=== PATIENT | female | born 2005 | race Caucasian/White ===

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

== ENCOUNTER 2024-01-05 07:17 | Emergency (ER) | payer SELFPAY ==
[2024-01-05 07:45] LABS: BASOPHILS ABSOLUTE AUTO 0.04 10^3/uL (0.00-0.10); BASOPHILS PERCENT AUTO 0.5 % (0.0-1.0); EOSINOPHILS ABSOLUTE AUTO 0.07 10^3/uL (0.10-0.30); EOSINOPHILS PERCENT AUTO 0.8 % (1.0-3.0); HEMATOCRIT 35.4 % (37.0-47.0); HEMOGLOBIN 12.4 g/dL (12.0-16.0); IMMATURE GRAN ABSOLUTE AUTO 0.02 10^3/uL (0.00-0.50); IMMATURE GRAN PERCENT AUTO 0.2 % (0.0-5.0); LYMPHOCYTES ABSOLUTE AUTO 1.82 10^3/uL (1.00-4.00); LYMPHOCYTES PERCENT AUTO 20.8 % (20.0-40.0); MEAN CORPUSCULAR VOLUME 85.5 fL (82.0-92.0); MEAN PLATELET VOLUME 9.2 fL (7.4-10.4); MONOCYTES PERCENT AUTO 9.2 % (2.0-8.0); NEUTROPHILS ABSOLUTE AUTO 5.99 10^3/uL (2.50-7.00); NEUTROPHILS PERCENT AUTO 68.5 % (50.0-70.0); PLATELET COUNT,PLT 246 10^3/uL (150-400); RED BLOOD CELL COUNT 4.14 10^6/uL (3.80-5.50); RED CELL DISTRIBUTION WIDTH 11.8 % (11.5-14.5); WHITE BLOOD CELL COUNT,WBC 8.74 10^3/uL (5.00-10.00)
[2024-01-05] MEDS: Sodium Chloride 0.9% 1,000 ML IV ONE (07:50)
[2024-01-05] MEDS: Ondansetron 4 MG/2 ML SDV IVPUSH ONE (07:52)
[2024-01-05 07:54] LABS: ALBUMIN 3.13 g/dL (3.40-5.00); ANION GAP 13.9 mmol/L (5-15); BILIRUBIN TOTAL 0.4 mg/dL (0.2-1.0); CALCIUM 8.3 mg/dL (8.7-10.3); CARBON DIOXIDE,CO2 25.6 mmol/L (21.0-32.0); CREATININE 0.68 mg/dL (0.51-1.17); EST CRCL DRUG DOSING (CG) 124.57 mL/min; POTASSIUM,K 3.5 mmol/L (3.5-5.1); PROTEIN TOTAL,TP 6.9 g/dL (6.4-8.2)
[2024-01-05 08:13] LABS: APPEARANCE,URINE SLIGHTLY CLOUDY (CLEAR); BILIRUBIN,URINE NEGATIVE (NEGATIVE); COLOR,URINE YELLOW (YELLOW); GLUCOSE,URINE NEGATIVE (NEGATIVE); KETONES,URINE NEGATIVE (NEGATIVE); LEUKOCYTE ESTERASE,URINE NEGATIVE (NEGATIVE); NITRITE,URINE NEGATIVE (NEGATIVE); OCCULT BLOOD,URINE NEGATIVE (NEGATIVE); PH,URINE 8.5 (5.0-9.0); PROTEIN,URINE 30 mg/dL (NEGATIVE); UROBILINOGEN,URINE 0.2 E.U./dL (0.2-1.0)
[2024-01-05 08:14] LABS: RBC,URINE 0-5 /HPF (0-5); WBC,URINE 0-5 /HPF (0-5)
[2024-01-05 08:15] LABS: BACTERIA,URINE RARE /HPF (NONE TO FEW); EPITHELIAL CELLS,URINE MODERATE /LPF; MUCUS,URINE MANY /LPF (NEGATIVE)
[2024-01-05] MEDS: Iopamidol 755 Mg/ML 100 ML Bottle IV ONE (08:27)
[2024-01-05] MEDS: Sodium Chloride 0.9% 50 ML IV SCH (08:27)
[2024-01-05] MEDS: HYDROmorphone 1 MG/ML Syringe IVPUSH ONE ×2 (08:31→09:55)
[2024-01-05] MEDS: Ketorolac 30 MG/ML SDV IVPUSH ONE (11:15)
== END 2024-01-05 10:05 ==
LOC: KA.ED 07:17
DX: K35.80 Unspecified acute appendicitis (principal); F17.210 Nicotine dependence, cigarettes, uncomplicated; Z79.899 Other long term (current) drug therapy
CPT/HCPCS: 36415; 74177; 80053; 81001; 81025; 83690; 85025; 86140; 96361; 96374; 96375; 96376; 99285-25; J1170; J2405; J3490; J7030; Q9967

== ENCOUNTER 2024-07-29 13:45 | Emergency (ER) | payer OTHER ==
[2024-07-29] MEDS ORDERED: Sodium Chloride 0.9% 10 ML Syringe FLUSH PRN (14:18)
[2024-07-29 14:35] LABS: BASOPHILS ABSOLUTE AUTO 0.04 10^3/uL (0.00-0.10); BASOPHILS PERCENT AUTO 0.4 % (0.0-1.0); EOSINOPHILS ABSOLUTE AUTO 0.13 10^3/uL (0.10-0.30); EOSINOPHILS PERCENT AUTO 1.3 % (1.0-3.0); HEMATOCRIT 37.9 % (37.0-47.0); HEMOGLOBIN 13.2 g/dL (12.0-16.0); IMMATURE GRAN ABSOLUTE AUTO 0.02 10^3/uL (0.00-0.50); IMMATURE GRAN PERCENT AUTO 0.2 % (0.0-5.0); LYMPHOCYTES ABSOLUTE AUTO 2.11 10^3/uL (1.00-4.00); LYMPHOCYTES PERCENT AUTO 20.7 % (20.0-40.0); MEAN CORPUSCULAR HEMOGLOBIN 29.8 pg (27.0-31.0); MEAN CORPUSCULAR HGB CONC 34.8 g/dL (32.0-36.0); MEAN CORPUSCULAR VOLUME 85.6 fL (82.0-92.0); MEAN PLATELET VOLUME 8.8 fL (7.4-10.4); MONOCYTES ABSOLUTE AUTO 0.78 10^3/uL (0.10-0.80); MONOCYTES PERCENT AUTO 7.6 % (2.0-8.0); NEUTROPHILS ABSOLUTE AUTO 7.13 10^3/uL (2.50-7.00); NEUTROPHILS PERCENT AUTO 69.8 % (50.0-70.0); PLATELET COUNT,PLT 304 10^3/uL (150-400); RED BLOOD CELL COUNT 4.43 10^6/uL (3.80-5.50); RED CELL DISTRIBUTION WIDTH 12.6 % (11.5-14.5); WHITE BLOOD CELL COUNT,WBC 10.21 10^3/uL (5.00-10.00)
[2024-07-29] MEDS: Sodium Chloride 0.9% 1,000 ML IV ONE (14:36)
[2024-07-29 14:46] LABS: APPEARANCE,URINE CLEAR (CLEAR); BILIRUBIN,URINE NEGATIVE (NEGATIVE); GLUCOSE,URINE NEGATIVE (NEGATIVE); KETONES,URINE NEGATIVE (NEGATIVE); LEUKOCYTE ESTERASE,URINE NEGATIVE (NEGATIVE); NITRITE,URINE NEGATIVE (NEGATIVE); PH,URINE 6.5 (5.0-9.0); PROTEIN,URINE NEGATIVE (NEGATIVE); UROBILINOGEN,URINE 0.2 E.U./dL (0.2-1.0)
[2024-07-29] MEDS: Ondansetron 4 MG/2 ML SDV IVPUSH ONE (14:48)
[2024-07-29 15:10] LABS: COLOR,URINE STRAW (YELLOW); OCCULT BLOOD,URINE SMALL (NEGATIVE); RBC,URINE 0-5 /HPF (0-5); WBC,URINE 0-5 /HPF (0-5)
[2024-07-29 15:11] LABS: BACTERIA,URINE FEW /HPF (NONE TO FEW); EPITHELIAL CELLS,URINE FEW /LPF
[2024-07-29 15:13] LABS: ALBUMIN 3.81 g/dL (3.40-5.00); BILIRUBIN TOTAL 0.2 mg/dL (0.2-1.0); CALCIUM 8.6 mg/dL (8.7-10.3); CARBON DIOXIDE,CO2 25.4 mmol/L (21.0-32.0); CREATININE 0.68 mg/dL (0.51-1.17); EST CRCL DRUG DOSING (CG) 119.74 mL/min; POTASSIUM,K 3.4 mmol/L (3.5-5.1); PROTEIN TOTAL,TP 7.4 g/dL (6.4-8.2)
== END 2024-07-29 15:50 | disposition home or self-care (01) ==
LOC: KA.ED 13:45
DX: O03.9 Complete or unspecified spontaneous abortion without complication (principal); E87.6 Hypokalemia; Z3A.01 Less than 8 weeks gestation of pregnancy
CPT/HCPCS: 36415; 76857; 80053; 81001; 83605; 84702; 85025; 87040; 96361; 96374; 99284-25; J2405; J7030

== ENCOUNTER 2024-11-12 10:35 | Emergency (ER) | payer OTHER, MEDICAID ==
[2024-11-12] MEDS ORDERED: Sodium Chloride 0.9% 10 ML Syringe FLUSH PRN (10:42)
[2024-11-12 10:50] LABS: BASOPHILS ABSOLUTE AUTO 0.04 10^3/uL (0.00-0.10); BASOPHILS PERCENT AUTO 0.4 % (0.0-1.0); EOSINOPHILS ABSOLUTE AUTO 0.01 10^3/uL (0.10-0.30); EOSINOPHILS PERCENT AUTO 0.1 % (1.0-3.0); HEMATOCRIT 37.3 % (37.0-47.0); HEMOGLOBIN 13.1 g/dL (12.0-16.0); IMMATURE GRAN ABSOLUTE AUTO 0.02 10^3/uL (0.00-0.04); IMMATURE GRAN PERCENT AUTO 0.2 % (0.0-0.4); LYMPHOCYTES ABSOLUTE AUTO 1.66 10^3/uL (1.00-4.00); LYMPHOCYTES PERCENT AUTO 17.3 % (20.0-40.0); MEAN CORPUSCULAR HEMOGLOBIN 29.5 pg (27.0-31.0); MEAN CORPUSCULAR HGB CONC 35.1 g/dL (32.0-36.0); MONOCYTES ABSOLUTE AUTO 0.57 10^3/uL (0.10-0.80); MONOCYTES PERCENT AUTO 5.9 % (2.0-8.0); NEUTROPHILS ABSOLUTE AUTO 7.32 10^3/uL (2.50-7.00); NEUTROPHILS PERCENT AUTO 76.1 % (50.0-70.0); PLATELET COUNT,PLT 360 10^3/uL (150-400); RED BLOOD CELL COUNT 4.44 10^6/uL (3.80-5.50); RED CELL DISTRIBUTION WIDTH 11.8 % (11.5-14.5); WHITE BLOOD CELL COUNT,WBC 9.62 10^3/uL (5.00-10.00)
[2024-11-12] MEDS: LORazepam 2 MG/ML SDV IVPUSH ONE (10:59)
[2024-11-12 11:00] LABS: APPEARANCE,URINE CLEAR (CLEAR); BILIRUBIN,URINE NEGATIVE (NEGATIVE); COLOR,URINE YELLOW (YELLOW); GLUCOSE,URINE NEGATIVE (NEGATIVE); KETONES,URINE NEGATIVE (NEGATIVE); LEUKOCYTE ESTERASE,URINE NEGATIVE (NEGATIVE); NITRITE,URINE NEGATIVE (NEGATIVE); OCCULT BLOOD,URINE NEGATIVE (NEGATIVE); PROTEIN,URINE NEGATIVE (NEGATIVE); UROBILINOGEN,URINE 0.2 E.U./dL (0.2-1.0)
[2024-11-12 11:01] LABS: ALANINE AMINOTRANSFERASE,ALT 18 U/L (14-63); ALBUMIN 3.85 g/dL (3.40-5.00); ALKALINE PHOSPHATASE 50 U/L (46-116); ANION GAP 19.9 mmol/L (5-15); ASPARTATE AMNIOTRANSFERASE,AST 19 U/L (15-37); BILIRUBIN TOTAL 0.2 mg/dL (0.2-1.0); BLOOD UREA NITROGEN,BUN 11 mg/dL (7-18); CALCIUM 9.1 mg/dL (8.7-10.3); CARBON DIOXIDE,CO2 21.2 mmol/L (21.0-32.0); CHLORIDE,CL 100 mmol/L (98-107); CREATININE 0.66 mg/dL (0.51-1.17); EST CRCL DRUG DOSING (CG) 129.75 mL/min; GLUCOSE RANDOM 119 mg/dL (70-140); POTASSIUM,K 3.1 mmol/L (3.5-5.1); PROTEIN TOTAL,TP 7.6 g/dL (6.4-8.2); SODIUM,NA 138 mmol/L (136-145)
[2024-11-12 11:02] LABS: C-REACTIVE PROTEIN < 0.50 mg/dL (0.00-0.50); ESTIMATED GFR 129 mL/min (>=60)
[2024-11-12 11:03] LABS: HCG QUALITATIVE,SERUM NEGATIVE (NEGATIVE)
[2024-11-12] MEDS: Sodium Chloride 0.9% 1,000 ML IV ONE (11:07)
[2024-11-12 11:10] LABS: AMPHETAMINES SCREEN, URINE NEGATIVE (NEGATIVE); BARBITURATE SCREEN,URINE NEGATIVE (NEGATIVE); BENZODIAZEPINES SCREEN,URINE NEGATIVE (NEGATIVE); COCAINE METABOLITES,URINE NEGATIVE (NEGATIVE); METHADONE SCREEN, URINE NEGATIVE (NEGATIVE); METHAMPHETAMINES SCREEN, URINE NEGATIVE (NEGATIVE); OXYCODONE SCREEN,URINE NEGATIVE (NEGATIVE); PCP SCREEN,URINE NEGATIVE (NEGATIVE); TCA SCREEN,URINE NEGATIVE (NEGATIVE); THC SCREEN,URINE 50 NG/ML NEGATIVE (NEGATIVE)
== END 2024-11-12 12:00 | disposition home or self-care (01) ==
LOC: KA.ED 10:35
DX: F41.0 Panic disorder [episodic paroxysmal anxiety] (principal); R06.4 Hyperventilation; R29.0 Tetany; Z88.8 Allergy status to other drugs, medicaments and biological substances; Z90.49 Acquired absence of other specified parts of digestive tract
CPT/HCPCS: 71045; 80053; 80305-QW; 81003; 84703; 85025; 86140; 93010; 96361; 96374; 99284; 99284-25; J2060; J7030

== ENCOUNTER 2024-11-15 10:06 | Emergency (ER) | payer OTHER, MEDICAID | END 2024-11-15 11:35 | disposition home or self-care (01) | LOC: KA.ED 10:06 | DX: F41.9 Anxiety disorder, unspecified (principal); L30.9 Dermatitis, unspecified; Z88.8 Allergy status to other drugs, medicaments and biological substances; Z79.899 Other long term (current) drug therapy; Z86.16 Personal history of COVID-19 | CPT/HCPCS: 36416; 86308; 99284 ==

== ENCOUNTER 2024-11-25 22:12 | Emergency (ER) | payer OTHER, MEDICAID ==
[2024-11-25] MEDS ORDERED: Sodium Chloride 0.9% 10 ML Syringe FLUSH PRN (22:52)
== END 2024-11-25 23:18 | disposition home or self-care (01) ==
LOC: KA.ED 22:12
DX: R07.89 Other chest pain (principal); F17.210 Nicotine dependence, cigarettes, uncomplicated; Z88.8 Allergy status to other drugs, medicaments and biological substances; Z79.899 Other long term (current) drug therapy; Z86.16 Personal history of COVID-19
CPT/HCPCS: 99285

== ENCOUNTER 2024-11-26 19:47 | Emergency (ER) | payer OTHER, MEDICAID | END 2024-11-26 21:30 | disposition home or self-care (01) | LOC: KA.ED 19:47 | DX: R07.89 Other chest pain (principal); F41.9 Anxiety disorder, unspecified; Z86.16 Personal history of COVID-19; Z90.49 Acquired absence of other specified parts of digestive tract; Z88.8 Allergy status to other drugs, medicaments and biological substances; Z79.899 Other long term (current) drug therapy | CPT/HCPCS: 71046; 99284 ==